=== PATIENT | female | born 1970 | race American Indian/Alaskan Native ===

== ENCOUNTER 2018-03-14 19:06 | Emergency (ER) | payer MEDICARE ==
--- NOTE | 2018-03-14 19:15 | Emergency Department Report ---
ED CPR HPI - General Stated Complaint: CARDIAC ARREST Time Seen by Provider: 03/14/18 19:10 Source: EMS - History of Present Illness Initial Comments: Patient is a 47 years old female brought to the ER by EMS in a cardiac arrest. Patient was found in her car in a parking lot by a bystander who called EMS. Family stated that last time they talk to her around 1:00 PM today. ACLS protocol initiated by EMS. Upon arrival to the ER, patient is contracted with obvious Rigor mortise, pupils are dilated fixed and nonreactive. Patient remained in asystole. Patient pronounced at 18:58. For further information please refer to code sheet. Family informed. Family stated that she has a history of multiple sclerosis, they also reported that she went for an appointment with her primary care physician today. MD Complaint: found unresponsive Place: other (parking lot) - Related Data Allergies Allergy/AdvReac Type Severity Reaction Status Date / Time cephalexin monohydrate Allergy Severe Vomiting Unverified 06/19/15 10:31 [From Keflex] vancomycin Allergy Severe Itching Unverified 06/19/15 10:31 ED Review of Systems ROS: Stated complaint: CARDIAC ARREST Other details as noted in HPI Comment: Unobtainable due to pts medical conditions ED Past Medical Hx - Past Medical History Hx Hypertension: Yes Hx Diabetes: Yes Hx Arthritis: Yes Hx Headaches / Migraines: Yes Additional medical history: MS,Gastroparisis Chronic neck and leg pain, - Surgical History Additional Surgical History: Urostomy placed in 2013. Hyst. Thymus removal - Social History Smoking Status: Never Smoker Substance Use Type: Prescribed ED Physical Exam - General General appearance: other (unresponsive) - Head Head exam: Present: atraumatic - Eye Pupils: Present: other (4 mm, dilated and fixed and unreactive to light.) - Respiratory Respiratory exam: Present: other (no spontaneous respirations) - Cardiovascular Cardiovascular Exam: Present: other (no heart tones) - GI/Abdominal GI/Abdominal exam: Present: soft - Extremities Exam Extremities exam: Present: other (Two fentanyl patchs on the right arm. Patient is contracted with obvious Reiger mortise.) - Skin Skin exam: Present: dry, intact ED Course - Reevaluation(s) Reevaluation #1: 03/14/18 19:40 I discussed the patient wishes primary care physician Dr.Justine, he stated that she was just discharged from [facility] recently. 03/14/18 19:48 Critical Care Time: Yes Critical care time in (mins) excluding proc time.: 30 Critical care attestation.: If time is entered above; I have spent that time in minutes in the direct care of this critically ill patient, excluding procedure time. ED Disposition Clinical Impression: Cardiopulmonary arrest Disposition: DC-20 Is pt being admited?: No Condition: Stable Referrals: PRIMARY CARE,MD [Primary Care Provider] - 3-5 Days
== END 2018-03-14 22:35 ==
LOC: ED 19:06
DX: I46.9 Cardiac arrest, cause unspecified (principal); I10 Essential (primary) hypertension; E11.9 Type 2 diabetes mellitus without complications; M19.90 Unspecified osteoarthritis, unspecified site; G43.909 Migraine, unspecified, not intractable, without status migrainosus; G89.29 Other chronic pain; Z88.1 Allergy status to other antibiotic agents
CPT/HCPCS: 99291